=== PATIENT | male | born 1955 | race Caucasian/White ===

== ENCOUNTER 2020-01-11 09:03 | Outpatient (CLI) | payer OTHER ==
--- NOTE | 2020-01-11 10:50 | MRI ---
MRI of thelumbar spine with and without contrast: 01/11/2020 COMPARISON:None available HISTORY:Low back pain with bilateral lower extremity radiculopathy, postlaminectomy syndrome TECHNIQUE: Multiplanar multisequence MR imaging of thelumbar spine with and without contrast Findings:The sagittal STIR imaging demonstrates no focal area of osseous marrow edema. On the basis of 5 lumbar type vertebral bodies, conus medullaris terminates at L1-2. T12-L1: No significant central canal or neural foraminal stenosis. L1-2: Mild disc space narrowing with mild anterior osteophyte formation. No significant central canal or neural foraminal stenosis. L2-3: Intervertebral disc height and signal intensity is within normal limits. Mild bilateral facet h ypertrophy with no significant central canal or neural foraminal stenosis. L3-4: There is disc space narrowing with disc desiccation, anterior osteophyte formation, and disc bu lge. Bilateral facet hypertrophy present. There is mild/moderate bilateral neural foraminal stenosis, right greater than left. Mild central canal stenosis noted. L4-5: Bilateral laminectomy noted. No central canal stenosis. Bilateral facet hypertrophy present. Mo derate right and severe left neural foraminal stenosis. L5-S1: Bilateral facet hypertrophy present with moderate bilateral neural foraminal stenosis, left gr eater than right. There is disc space narrowing with disc desiccation and mild disc bulge. No central canal stenosis. Evaluation of the retroperitoneal structures is limited secondary to motion. There is a questionable nonspecific lesion emanating from the lower pole of the right kidney measuring 2.8 cm. This could potentially be related to motion artifact. Recommend follow-up renal ultrasound. The postcontrast jamaal ging demonstrates no abnormal enhancement within the lumbar spine. IMPRESSION:Postoperative and degenerative change within the lumbar spine as detailed above. Questionable lesion emanating from the lower pole of the right kidney. Recommend renal ultrasound. CODE T
[2020-01-11] MEDS ORDERED: Magnevist 469MG/ML 20 ML VIAL ONE (14:38)
== END 2020-01-11 09:04 | disposition home or self-care (01) ==
LOC: BICMRI 09:03
PROVIDERS: ATTEND Specialist
DX: M51.16 Intervertebral disc disorders with radiculopathy, lumbar region (principal); M96.1 Postlaminectomy syndrome, not elsewhere classified; M47.26 Other spondylosis with radiculopathy, lumbar region; M47.817 Spondylosis without myelopathy or radiculopathy, lumbosacral region; Z98.890 Other specified postprocedural states
CPT/HCPCS: 72158; 82565; A9579